=== PATIENT | male | born 1995 | race Caucasian/White ===

== ENCOUNTER 2020-11-14 10:25 | Emergency (ER) | payer OTHER, SELFPAY ==
[2020-11-14 10:39] VITALS: BP 125/76; PULSE 76; RESP 17; TEMP 36.6; O2SAT 97; BMI 29.4
--- NOTE | 2020-11-14 10:50 | ED_ITS ---
HPI - Overdose General Chief Complaint: Overdose Stated Complaint: OD Time Seen by Provider: 11/14/20 10:46 Source: patient and EMS History of Present Illness HPI Narrative: 25-year-old male with a past medical history of substance abuse BIBJovani s/p found stumbling around his apartment complex after snorting 1 bag of heroin. Patient denies any other illicit drugs/substances, EtOH, SI, HI, trauma, falls, CP/SOB, abdominal pain, nausea/vomiting. MD complaint: accidental overdose Related Data Allergies Allergy/AdvReac Type Severity Reaction Status Date / Time No Known Allergies Allergy Unverified 02/18/20 17:15 [No Known Allergies*] Review of Systems Review of Systems: Constitutional: No Fever, No Chills Eyes: No Eye Pain Cardiovascular: No Chest Pain, No SOB Respiratory: No Cough, No Dyspnea Gastrointestinal: No Nausea, No Vomiting, No Abdominal pain Musculoskeletal: No joint pain, No Myalgias, No Joint Swelling Skin: No Skin Lesions, No rash Psych: No Anxiety/Panic, No Depression, No SI/HI, No Social Issues Yes all other systems are reviewed and are negative [facility] Past Medical History Attestation statement: The following information was validated with the patient. Social History Social History Advance Directives: Yes Advance Directives Information Provided: Yes Advance Directives on File: No Physical Exam Vital Signs: Vital Signs: Last Vital Signs Temp 98 F 11/14/20 10:39 Pulse 74 11/14/20 14:30 Resp 15 11/14/20 14:30 BP 122/70 11/14/20 14:30 Pulse Ox 95 11/14/20 14:30 Body Mass Index 29.4 Const: Other: Appears under the influence, continuously falling asleep on exam, alert to voice General: lethargic Orientation/consciousness: lethargic Limitations: no limitations HENMT: Head: Yes normal to inspection and Yes atraumatic Ears: hearing grossly normal bilaterally General nose exam: Normal external nose present Face and sinus: Yes normal facial exam Eyes: General: appearance normal, both eyes and all related structures EOM: EOMs intact bilaterally Neck: Neck: Yes normal visual inspection and Yes no meningeal signs Resp: Effort & Inspection: normal respiratory effort Cardio: Rate: regular rate GI: Inspection: Yes normal to inspection Palpation (GI): Soft to palpation, nontender, no guarding and not rigid Skin: Rashes: no rashes Wounds: no wounds Neuro: General: no meningeal signs Extrem: General: Yes normal to inspection Course Course Course Narrative: -1400--patient is sleeping comfortably, easily arousable to voice -1610--patient is still very lethargic, alert to voice -1700-patient is awake and alert, ambulating in the ED without difficulty, called his brother for a ride MDM - Overdose MDM Narrative Medical decision making narrative: 25-year-old male with a past medical history of substance abuse BIBA s/p found stumbling around his apartment complex after snorting 1 bag of heroin. On exam VSS, appears under the influence, lethargic/continuously falling asleep on exam, alert to voice. Concern for substance abuse/unintentional OD. Plan: Will observe and reassess for clinical sobriety Medical Records Attestation: I reviewed the patient's medical records. Lab Data Attestation: I reviewed the patient's lab results. Discharge Plan Discharge Clinical Impression: Heroin overdose Patient Disposition: Home, Self-Care Instructions: Adult Overdose (ED) Additional Instructions: Do not do drugs or drink alcohol it can kill you Referrals: Physician,Unknown [Primary Care Provider] - 2 days
[2020-11-14 14:30] VITALS: BP 122/70; PULSE 74; RESP 15; O2SAT 95
--- NOTE | 2020-11-14 15:18 | PC.NURSE ---
Pt is more alert and oriented at this time and is awaiting disposition. VSS
--- NOTE | 2020-11-14 16:48 | MHC.RECOVSUP ---
Recovery Support note: Patient is a 25 year old Chinese speaking male who presented to [facility] ED after an accidental overdose. This development writer met with patient to discuss his substance use and recovery. Patient reports he does not recall the events that lead up to his overdose. Patient vaguely reports that he used due to a stressful situation at home. Patient reports he had 3 months of sobriety and he was staying busy by playing basketball and he reports losing significant weight through this process. Patient reports the relapse was a slip up and that he is ready to get back into recovery. Patient reports he is not interested in recovery resources and that he has friends and family that he can reach out to for support. Patient reports he is hoping to discharge soon. Discussed case with patient's RN.
== END 2020-11-14 17:28 | disposition home or self-care (01) ==
PROVIDERS: Emergency Provider Emergency Medicine Emergency Medical Services
DX: T40.1X1A Poisoning by heroin, accidental (unintentional), initial encounter (principal); F11.10 Opioid abuse, uncomplicated; Y92.9 Unspecified place or not applicable
CPT/HCPCS: 99283

== ENCOUNTER 2020-11-21 05:32 | Emergency (ER) | payer OTHER, SELFPAY ==
--- NOTE | ~2020-11-21 | XR_ITS ---
EXAMINATION: XR CHEST CLINICAL INFORMATION: Low oxygen saturation COMPARISON: None TECHNIQUE: 2 views of the chest were obtained. FINDINGS: The lungs are well expanded. There is no focal consolidation, edema, or effusion. No pneumothorax. The cardiomediastinal silhouette is within normal limits. No acute osseous abnormality. XR/XR chest 2V IMPRESSION: Clear lungs.
[2020-11-21 06:07] VITALS: BP 130/75; PULSE 90; RESP 18; TEMP 36.8; O2SAT 93; BMI 31.0
--- NOTE | 2020-11-21 06:39 | ED.EAR ---
HPI - Ear Problem General Chief complaint: Ear Problems Stated complaint: right ear pain, hearing is fine Time Seen by Provider: 11/21/20 06:33 Source: patient Mode of arrival: ambulatory Limitations: no limitations History of Present Illness HPI Narrative: 25 yo male with R ear pain since last night atraumatic, no FB, no other symptoms MD Complaint: ear pain Location: right ear Duration: constant Severity: mild Relieving factors: nothing Exacerbating factors: nothing Discharge from ear: no Treatment prior to arrival: none Related Data Previous Rx's Medication Instructions Recorded amoxicillin 500 mg PO BID 7 Days #14 tab 11/21/20 ofloxacin 10 drp OTIC (EARS) DAILY 7 Days #5 11/21/20 ml Allergies Allergy/AdvReac Type Severity Reaction Status Date / Time No Known Allergies Allergy Unverified 02/18/20 17:15 [No Known Allergies*] Review of Systems Review of Systems: Constitutional : No Fever, No Chills ENT/Mouth : No sore throat, No Rhinorrhea, pos R ear pain Eyes: No Eye Pain, No Swelling, No Redness Cardiovascular : No Chest Pain, No SOB Respiratory : No Cough, No Sputum, No Wheezing Gastrointestinal : No Nausea, No Vomiting, No Diarrhea Genitourinary : No Dysuria, No Urinary Frequency, No Hematuria, Musculoskeletal : No joint pain, No Myalgias, No Joint Swelling Skin : No Skin Lesions, No rash PMFSH Past Medical History Attestation statement: The following information was validated with the patient. Medical History No active medical problems Social History Social History Alcohol intake: unknown Patient Tobacco Use Status: Never used Tobacco Use of substances other than those prescribed or required for medical reasons: Yes Substance Use Type: Heroin Substance Use Frequency: Chronic Longstanding Advance Directives: No Advance Directives Information Provided: No Physical Exam Vital Signs: Vital Signs: Last Vital Signs Temp 98.3 F 11/21/20 06:07 Pulse 90 11/21/20 06:07 Resp 18 11/21/20 06:07 BP 130/75 11/21/20 06:07 Pulse Ox 93 11/21/20 06:07 Body Mass Index 31.0 Appearance: Alert. Oriented X3. No acute distress. Eyes: Pupils equal, round and reactive to light. ENT: Pharynx normal. R ear moderate swelling and erythema in R ear canal no FB seen TM visible with erythema and bulging no perforation noted Neck: Normal inspection. Neck supple. CVS: Normal heart rate and rhythm. Pulses normal. Respiratory: No respiratory distress. Breath sounds normal. Abdomen: Soft and non-tender. Skin: Skin warm and dry. Normal skin color. Normal skin turgor. Extremities: No lower extremity edema. No calf ttp Neuro: Oriented X 3. No motor deficit. No sensory deficit. MDM - Ear MDM Narrative Medical decision making narrative: 25 yo male otherwise healthy here with R ear pain no FB seen no perforation has mild OE and AOM, no other signs of infection, sat on my exam during interview is 97%, start on ear gtts and oral amoxicillin, stable for DC Discharge Plan Discharge Clinical Impression: Otitis externa Qualifiers: Otitis externa type: unspecified type Chronicity: acute Laterality: right Qualified Code(s): H60.501 - Unspecified acute noninfective otitis externa, right ear Otitis media Qualifiers: Otitis media type: suppurative Chronicity: acute Laterality: right Recurrence: non-recurrent Spontaneous tympanic membrane rupture: without spontaneous rupture Qualified Code(s): H66.001 - Acute suppurative otitis media without spontaneous rupture of ear drum, right ear Patient Disposition: Home, Self-Care Instructions: Otitis Externa (ED), Ear Infection (ED) Additional Instructions: return to ED for any worsening symptoms or concerns Prescriptions: New amoxicillin 500 mg tablet 500 mg PO BID 7 Days Qty: 14 RF: 0 ofloxacin 0.3 % drops 10 drp otic (ears) DAILY 7 Days Qty: 5 RF: 0 Stand Alone Forms: Work/School Release
[2020-11-21] MEDS: Amoxicillin 500 MG CAPSULE PO (06:40)
[2020-11-21 06:41] LABS: COVID-19 Test Negative (Negative)
== END 2020-11-21 07:09 | disposition home or self-care (01) ==
PROVIDERS: Emergency Provider Emergency Medicine
DX: H60.501 Unspecified acute noninfective otitis externa, right ear (principal); H66.001 Acute suppurative otitis media without spontaneous rupture of ear drum, right ear; Z20.822 Contact with and (suspected) exposure to COVID-19
CPT/HCPCS: 36415; 71046; 87635; 99283; 99284

== ENCOUNTER 2020-12-01 08:53 | Emergency (ER) | payer OTHER, SELFPAY ==
[2020-12-01 08:59] VITALS: BP 109/60; PULSE 100; RESP 18; TEMP 36.6; O2SAT 94; BMI 31.5
--- NOTE | 2020-12-01 11:03 | MHC.RECOVSUP ---
? Reason for consult:Continuity of care o Current location: [address] [place] [address] o Identified substance use concern: Heroin - Overdose - Support ? Intervention: o Community resources provided o Harm reduction discussion ? Plan: o Patient to follow up with [facility] after discharge ? Additional information:PT. presented with all options for recovery including MAR. Pt. still impaired and refusing treatment. Pt. states: I'm ready to go . Had a harm reduction discussion also. Told Nurse Howe about my assessment.
[2020-12-01 12:00] VITALS: RESP 16; O2SAT 96
[2020-12-01 14:00] VITALS: BP 113/58; PULSE 74; RESP 16; O2SAT 98
--- NOTE | 2020-12-01 17:01 | ED.OVERDOSE ---
HPI - Overdose General Chief Complaint: Overdose Stated Complaint: HEROIN OD,NARCAN GIVEN W/GOOD RESULT Time Seen by Provider: 12/01/20 11:13 Related Data Previous Rx's Medication Instructions Recorded amoxicillin 500 mg tablet 500 mg PO BID 7 Days #14 tab 11/21/20 ofloxacin 0.3 % ear drops 10 drp OTIC (EARS) DAILY 7 Days #5 11/21/20 ml ibuprofen 600 mg tablet 600 mg PO TID PRN #14 tab 12/14/20 amoxicillin 875 mg-potassium 1 tab PO Q12H 10 Days #20 tab 12/17/20 clavulanate 125 mg tablet (Augmentin) ibuprofen 600 mg tablet 600 mg PO TID PRN #60 tab 12/17/20 amoxicillin 875 mg-potassium 1 tab PO Q12H 5 Days #10 tab 12/30/20 clavulanate 125 mg tablet (Augmentin) Allergies Allergy/AdvReac Type Severity Reaction Status Date / Time No Known Allergies Allergy Verified 12/30/20 02:23 [No Known Allergies*] PMFSH Past Medical History Medical History No active medical problems Substance abuse Social History Social History Alcohol intake: unknown Patient Tobacco Use Status: Current someday Tobacco user Smoked in Last 30 Days: Yes Use of substances other than those prescribed or required for medical reasons: No Substance Use Type: Marijuana Advance Directives: No Physical Exam Vital Signs: Vital Signs: Last Vital Signs Temp 98 F 12/01/20 08:59 Pulse 74 12/01/20 14:00 Resp 16 12/01/20 14:00 BP 113/58 L 12/01/20 14:00 Pulse Ox 98 12/01/20 14:00 Body Mass Index 31.5 Discharge Plan Discharge Clinical Impression: Opiate overdose Patient Disposition: Home, Self-Care Instructions: Narcotic Safety (ED), Narcotic Use Disorder (ED) Additional Instructions: You overdosed on intranasal narcotics / heroin today. You need to get into a detox program to help with your opiate use disorder. I offered to have one of our care team specialist talk to you about getting into detox program however you have elected to pursue detox on your own, make sure that you follow through with this plan. If you continue to use opiates there is a high chance that you will from an opiate overdose. if you continue to use heroin then you should make sure that there is a sober person that can be with you and administer intranasal Narcan in the event that you stop breathing. Follow-up with your doctor in 2 days. Please return to the emergency department if your symptoms get worse or if you develop any symptoms that are concerning to you. Prescriptions: No Action amoxicillin 500 mg tablet 500 mg PO BID 7 Days Qty: 14 RF: 0 ofloxacin 0.3 % drops 10 drp otic (ears) DAILY 7 Days Qty: 5 RF: 0 amoxicillin-pot clavulanate [Augmentin] 875-125 mg tablet 1 tab PO Q12H 5 Days Qty: 10 RF: 0 ibuprofen 600 mg tablet 600 mg PO TID PRN (Reason: pain) Qty: 14 RF: 0 amoxicillin-pot clavulanate [Augmentin] 875-125 mg tablet 1 tab PO Q12H 10 Days Qty: 20 RF: 0 ibuprofen 600 mg tablet 600 mg PO TID PRN (Reason: pain) Qty: 60 RF: 0 Interventions: ED Discharge Assessment Last Done: 12/01/20 17:31 Discharge Date/Time: 12/01/20 17:22
== END 2020-12-01 17:22 | disposition home or self-care (01) ==
PROVIDERS: Emergency Provider Emergency Medicine Emergency Medical Services
DX: T40.1X1A Poisoning by heroin, accidental (unintentional), initial encounter (principal); Y92.9 Unspecified place or not applicable; F19.10 Other psychoactive substance abuse, uncomplicated
CPT/HCPCS: 99284; 99285

== ENCOUNTER 2020-12-01 19:17 | Emergency (ER) | payer OTHER, SELFPAY ==
[2020-12-01 19:17] VITALS: BP 128/69; PULSE 86; RESP 16; O2SAT 99; BMI 31.0
[2020-12-01 19:21] VITALS: BP 128/69; PULSE 86; RESP 16; TEMP 36.4; O2SAT 99
--- NOTE | 2020-12-01 20:38 | MHC.RECOVSUP ---
? Reason for consult Recovery Support o Current location: [facility] o Identified substance use concern: Heroin - Overdose - Seeking ATS (detox) - Support ? Intervention: o ATS bed search [id number] o Community resources provided o Harm reduction discussion ? Plan o Follow up tomorrow o Patient to follow up with [facility] after discharge ? Additional information: Patient Has two possible bed for the Morning.. At [facility] which is his first choice Paper work Faxed by Patient Nurse.... the other place patient has a bed pending is at [facility] they ask that for a call in the Morning...
--- NOTE | 2020-12-01 20:43 | PC.NURSE ---
Pt changed into hospital attire upon arrival, belongings placed in decon. Pt is calm, cooperative and seeking detox. Bed available tomorrow AM in [facility]- pt info sent via fax.
[2020-12-01 20:55] VITALS: BP 115/61; PULSE 73; RESP 14; O2SAT 96
--- NOTE | 2020-12-01 22:56 | ED.OVERDOSE ---
HPI - Overdose General Chief Complaint: Overdose Stated Complaint: OD Time Seen by Provider: 12/01/20 22:56 Source: patient and EMS Mode of arrival: EMS Limitations: no limitations History of Present Illness HPI Narrative: patient's history of heroin abuse came to the ER 2nd time with heroin overdose within 2 weeks, planning to go for inpatient detox tomorrow just prior to arrival patient was found outside the laboratory by bystander not breathing started CPR 4 mg of nasal Narcan was given by EMS with positive effect patient admitted using 3 bags of heroin prior to arrival at this time patient is alert oriented x3 saturating 99% at room air Related Data Previous Rx's Medication Instructions Recorded amoxicillin 500 mg PO BID 7 Days #14 tab 11/21/20 ofloxacin 10 drp OTIC (EARS) DAILY 7 Days #5 11/21/20 ml Allergies Allergy/AdvReac Type Severity Reaction Status Date / Time No Known Allergies Allergy Unverified 02/18/20 17:15 [No Known Allergies*] Review of Systems Review of Systems: Yes all other systems are reviewed and are negative PMFSH Past Medical History Medical History No active medical problems Social History Social History Alcohol intake: unknown Patient Tobacco Use Status: Never used Tobacco Use of substances other than those prescribed or required for medical reasons: Yes Substance Use Type: Heroin Advance Directives: No Advance Directives Information Provided: Yes Physical Exam Vital Signs: Vital Signs: Last Vital Signs Temp 97.5 F 12/01/20 19:21 Pulse 73 12/01/20 20:55 Resp 14 12/01/20 20:55 BP 115/61 12/01/20 20:55 Pulse Ox 96 12/01/20 20:55 Body Mass Index 31.0 Appearance: Alert. Oriented X3. No acute distress. sleepy but arousable Eyes: PERRLA, No Nystagmus ENT: Pharynx normal. Oral Mucosa moist Neck: Normal inspection. Neck supple. CVS: Normal heart rate and rhythm. Pulses normal. Respiratory: No respiratory distress. Equal air entry bilateral, no wheezing/rales/rhonchi Abdomen: Soft and nontender. Bowel sounds are present, no mass palpable, no CVA tenderness Skin: Skin warm and dry. Normal skin color. Normal skin turgor. Extremities: No lower extremity edema. No calf tenderness Neuro: Oriented X 3. No motor deficit. MDM - Overdose MDM Narrative Medical decision making narrative: patient with hx of heroin abuse plan to go to detox in the morning will keep him in the ER as he came within 2 weeks of overdose till tomorrow morning for detox placement Discharge Plan Discharge Clinical Impression: Drug overdose Qualifiers: Encounter type: initial encounter Injury intent: accidental or unintentional Qualified Code(s): T50.901A - Poisoning by unspecified drugs, medicaments and biological substances, accidental (unintentional), initial encounter Patient Disposition: Home, Self-Care Instructions: Opioid Use Disorder (ED) Additional Instructions: follow-up with detox medically clear for detox admission Prescriptions: No Action amoxicillin 500 mg tablet 500 mg PO BID 7 Days Qty: 14 RF: 0 ofloxacin 0.3 % drops 10 drp otic (ears) DAILY 7 Days Qty: 5 RF: 0
[2020-12-02] VITALS: RESP 16
[2020-12-02 07:56] VITALS: PULSE 80; O2SAT 95
[2020-12-02 09:01] VITALS: BP 118/74
--- NOTE | 2020-12-02 09:01 | PC.NURSE ---
Robby Scruggs admitting [facility].
--- NOTE | 2020-12-02 09:06 | MHC.RECOVSUP ---
Recovery Support note: This com writer met with patient to follow up on ATS referral from yesterday. [facility] reports patient is able to return however he must agree to remain in treatment after detox in their step down program as patient recently left their detox. Patient is agreeable to this plan. Patient completed phone intake and Tejas KENNEY completed nurse to nurse. This com writer will arrange transportation for patient to [facility].
== END 2020-12-02 10:16 | disposition home or self-care (01) ==
PROVIDERS: Emergency Provider Emergency Medicine Emergency Medical Services
DX: T40.1X1A Poisoning by heroin, accidental (unintentional), initial encounter (principal); F11.10 Opioid abuse, uncomplicated; Y92.89 Other specified places as the place of occurrence of the external cause
CPT/HCPCS: 99285

== ENCOUNTER 2020-12-13 22:36 | Emergency (ER) | payer OTHER, SELFPAY ==
--- NOTE | ~2020-12-13 | XR_ITS ---
EXAMINATION: XR RIBS, LEFT CLINICAL INFORMATION: Lower rib pain COMPARISON: 11/21/2020 TECHNIQUE: 3 views of the left ribs were obtained. FINDINGS: No rib fracture identified. Lungs are symmetrically expanded and clear. No evidence of pneumothorax, pleural effusion, or pulmonary edema. The cardiomediastinal contour is unremarkable. XR/XR ribs LT min 3V w CXR1V IMPRESSION: No rib fracture identified.
[2020-12-13 22:37] VITALS: BP 133/78; PULSE 83; RESP 18; TEMP 36.9; O2SAT 97; BMI 32.5
--- NOTE | 2020-12-14 00:55 | ECG_ITS ---
Test Reason : CP Blood Pressure : / mmHG Vent. Rate : 070 BPM Atrial Rate : 070 BPM P-R Int : 092 ms QRS Dur : 082 ms QT Int : 384 ms P-R-T Axes : -28 028 044 degrees QTc Int : 414 ms Sinus rhythm with short GA Otherwise normal ECG When compared with ECG of 04-JUL-2004 13:54, Heart rate has decreased by 34 beats Referred By: Liss Dhillon Electronically Signed By:Brian Eckert
--- NOTE | 2020-12-14 00:56 | ED_ITS ---
HPI - Chest Pain General Chief Complaint: Chest Pain Stated Complaint: abd pain Time Seen by Provider: 12/14/20 00:50 Source: patient Mode of arrival: ambulatory Limitations: no limitations History of Present Illness HPI narrative: Patient comes emergency room complaining left-sided rib pain. Patient states that it started hurting approximately 6 hours ago. Patient states every time he moves his ribs hurt, denies any trauma, no falls, denies coughing or any recent URIs. Otherwise patient feeling well. Of note, patient was seen here on December 01, after an overdose. Patient received 1 round of CPR by a bystander and 4 of Narcan. Related Data Previous Rx's Medication Instructions Recorded amoxicillin 500 mg PO BID 7 Days #14 tab 11/21/20 ofloxacin 10 drp OTIC (EARS) DAILY 7 Days #5 11/21/20 ml ibuprofen 600 mg PO TID PRN #14 tab 12/14/20 Allergies Allergy/AdvReac Type Severity Reaction Status Date / Time No Known Allergies Allergy Unverified 02/18/20 17:15 [No Known Allergies*] Review of Systems Review of Systems: Constitutional : No Weight loss, No Fever, No Chills, No Night Sweats, No Fatigue, No Malaise ENT/Mouth : No Hearing loss, No Ear Pain, No Nasal Congestion, No Sinus Pain, No Hoarseness, No sore throat, No Rhinorrhea, No Swallowing Difficulty Eyes: No Eye Pain, No Swelling, No Redness, No Foreign Body, No Discharge, No Vision Changes Cardiovascular : No Chest Pain, No SOB, No Dyspnea on Exertion, No Orthopnea, No Edema, No Palpitations Respiratory : No Cough, No Sputum, No Wheezing, No Smoke Exposure, No Dyspnea Gastrointestinal : No Nausea, No Vomiting, No Diarrhea, No Constipation, No abdominal Pain, No Hematochezia, No Melena Genitourinary : no irregular bleeding, No Dysuria, No Urinary Frequency, No Hematuria, No Urinary Incontinence, No Urgency, No Flank Pain, No Urinary Flow Changes, No Hesitancy Musculoskeletal : Complaining of left-sided rib pain, No joint pain, No Myalgias, No Joint Swelling Skin : No Skin Lesions, No rash Neuro : No Weakness, No Numbness, No Paresthesias, No Loss of Consciousness, No Dizziness, No Headache Psych : No Anxiety/Panic, No Depression, No SI/HI/AH/VH, No Social Issues, Heme/Lymph: No Bruising, No Bleeding,No Lymphadenopathy Endocrine : No Polyuria, No Polydipsia, No Temperature Intolerance [facility] Past Medical History Medical History (Updated 12/14/20 @ 03:16 by Liss Dhillon MD) No active medical problems Substance abuse Social History Social History Alcohol intake: never Patient Tobacco Use Status: Current someday Tobacco user Smoked in Last 30 Days: Yes Use of substances other than those prescribed or required for medical reasons: Yes Substance Use Type: Marijuana Last Used Substance: Just Prior to Admission Any prior treatment program specific to substance use: Yes Advance Directives: No Physical Exam Vital Signs: Vital Signs: Last Vital Signs Temp 98.1 F 12/14/20 02:34 Pulse 68 12/14/20 02:34 Resp 16 12/14/20 02:34 BP 102/57 L 12/14/20 02:34 Pulse Ox 96 12/14/20 02:34 Body Mass Index 32.5 Appearance: Alert. Oriented X3. No acute distress. Eyes: Pupils equal, round and reactive to light. ENT: Pharynx normal. Neck: Normal inspection. Neck supple. No lymph nodes noted. No crepitus CVS: Normal heart rate and rhythm. Pulses normal. Normal S1 and S2 Respiratory: No respiratory distress. Breath sounds normal. No Wheezing. No rales Abdomen: Soft and nontender. No rigidity. No distention. good BS x4 Skin: Skin warm and dry. Normal skin color. Normal skin turgor. MSK: Pain to palpation over the lower ribs on the left side, frontal and flank aspect Extremities: No lower extremity edema. No lower extremity edema. No Lace rations. No Rash Neuro: Oriented X 3. No motor deficit. No sensory deficit. Moving all extermities. No slurred speech. Course Course Course Narrative: I discussed the labs and imaging with the patient, no acute findings. Patient's pain in the ribs likely secondary to costochondritis from receiving CPR. I offered to the patient a Toradol IM injection, patient declined, patient states that he prefers lidocaine patches MDM - Chest Pain Lab Data Labs: Lab Results 12/14/20 12/14/20 Range/Units 01:12 01:12 Urine Color YELLOW Urine Appearance CLEAR Urine pH 5.5 (5.0-8.0) Ur Specific [place] >= 1.030 H (1.005-1.025) Urine Protein NEG (NEG-TRACE) MG/DL Urine Glucose (UA) NEG (NEG) MG/DL Urine Ketones 15 (NEG) MG/DL Urine Blood NEG (NEG) Urine Nitrite NEG (NEG) Ur Leukocyte Esterase NEG (NEG) Urine Opiates Screen Not Detected (Not Detect) Ur Barbiturates Screen POSITIVE H (Not Detect) Ur Phencyclidine Scrn Not Detected (Not Detect) Ur Amphetamines Screen Not Detected (Not Detect) U Benzodiazepines Scrn Not Detected (Not Detect) Urine Cocaine Screen POSITIVE H (Not Detect) U Marijuana (THC) Screen POSITIVE H (Not Detect) Imaging Data Chest x-ray: Radiologist's impression: No rib fracture identified. Lungs are symmetrically expanded and clear. No evidence of pneumothorax, pleural effusion, or pulmonary edema. The cardiomediastinal contour is unremarkable. XR/XR ribs LT min 3V w CXR1V IMPRESSION: No rib fracture identified. ECG Data ECG #1: Attestation: I personally reviewed and interpreted this ECG as follows: (Sinus rhythm, heart rate 70, no ST segment depression or elevation, no T-wave inversion) Discharge Plan Discharge Clinical Impression: Costochondritis Patient Disposition: Home, Self-Care Instructions: Costochondritis (ED) Additional Instructions: Please follow-up with your primary care physician tomorrow. If you have any worsening or new symptoms, please return to the emergency room or call 911 Prescriptions: New ibuprofen 600 mg tablet 600 mg PO TID PRN (Reason: pain) Qty: 14 RF: 0 No Action amoxicillin 500 mg tablet 500 mg PO BID 7 Days Qty: 14 RF: 0 ofloxacin 0.3 % drops 10 drp otic (ears) DAILY 7 Days Qty: 5 RF: 0
[2020-12-14 01:09] VITALS: BP 115/62; PULSE 70; PULSE 76; RESP 18; O2SAT 98
[2020-12-14 01:24] LABS: Glucose Urine UA NEG (NEG); Leukocyte Esterase Urine NEG (NEG); Nitrite Urine NEG (NEG); PH 5.5 (5.0-8.0); Specific Gravity - Urine >= 1.030 (1.005-1.025); Urine Blood NEG (NEG); Urine Ketones 15 MG/DL (NEG); Urine Protein NEG (NEG-TRACE)
[2020-12-14 01:25] LABS: Appearance Urine CLEAR; Color Urine YELLOW
[2020-12-14 01:36] LABS: Amphetamine Screen Urine Not Detected (Not Detect); Barbiturates, Urine POSITIVE (Not Detect); Benzodiazepines Screen Urine Not Detected (Not Detect); Cannabinoid Screen Urine POSITIVE (Not Detect); Cocaine Screen Urine POSITIVE (Not Detect); Opiate Screen Urine Not Detected (Not Detect); Phencyclidine Screen Urine Not Detected (Not Detect)
[2020-12-14 02:34] VITALS: BP 102/57; PULSE 68; RESP 16; TEMP 36.7; O2SAT 96
== END 2020-12-14 03:39 | disposition home or self-care (01) ==
PROVIDERS: Emergency Provider Emergency Medicine
DX: M94.0 Chondrocostal junction syndrome [Tietze] (principal); R07.81 Pleurodynia; F17.200 Nicotine dependence, unspecified, uncomplicated; Z71.6 Tobacco abuse counseling; F12.90 Cannabis use, unspecified, uncomplicated; Z79.899 Other long term (current) drug therapy
CPT/HCPCS: 71101; 80307; 81003; 93005; 99284; 99285

== ENCOUNTER 2020-12-14 21:20 | Emergency (ER) | payer OTHER, SELFPAY ==
[2020-12-14 21:24] VITALS: BP 119/72; PULSE 89; RESP 18; TEMP 36.9; O2SAT 95; BMI 32.5
--- NOTE | 2020-12-14 22:09 | ED.GENADULT ---
HPI - General Adult General Chief complaint: General Medical Stated complaint: PT was here yesterday, states pain is worse Time Seen by Provider: 12/14/20 21:58 Source: patient Mode of arrival: ambulatory Limitations: no limitations History of Present Illness HPI narrative: 25-year-old male who presents emergency department for evaluation of left-sided chest wall pain. The patient's pain started yesterday and came on suddenly. He describes the pain as a sharp, intermittent pain which is worse with breathing and with movement. He denied fever, chills, shortness of breath, cough, nausea, vomiting. The patient was seen here yesterday and was diagnosed with costochondritis. He was advised to take ibuprofen and he states that he took some ibuprofen with only minimal relief his pain. He states that he was off a shot of pain medication but refused yesterday but would consider getting this pain medication again today. Related Data Previous Rx's Medication Instructions Recorded amoxicillin 500 mg PO BID 7 Days #14 tab 11/21/20 ofloxacin 10 drp OTIC (EARS) DAILY 7 Days #5 11/21/20 ml ibuprofen 600 mg PO TID PRN #14 tab 12/14/20 Allergies Allergy/AdvReac Type Severity Reaction Status Date / Time No Known Allergies Allergy Unverified 02/18/20 17:15 [No Known Allergies*] Review of Systems Review of Systems: Yes all other systems are reviewed and are negative [facility] Past Medical History [facility] Narrative: Past medical history: Heroin use disorder. Past surgical history: None. Social history: The patient denies tobacco use, denies alcohol use. The patient does have a history of heroin use disorder but he states that he recently got out of detox and is no longer using. Medical History (Updated 12/14/20 @ 22:15 by Tray Pinto MD) No active medical problems Substance abuse Social History Social History Alcohol intake: never Patient Tobacco Use Status: Current someday Tobacco user Substance Use Type: Marijuana Advance Directives: No Advance Directives Information Provided: No Physical Exam Vital Signs: Vital Signs: Last Vital Signs Temp 98.5 F 12/14/20 21:24 Pulse 89 12/14/20 21:24 Resp 18 12/14/20 21:24 BP 119/72 12/14/20 21:24 Pulse Ox 95 12/14/20 21:24 Body Mass Index 32.5 Const: General: cooperative and healthy appearing Orientation/consciousness: oriented to person and oriented to place Limitations: no limitations HENMT: Head: Yes normal to inspection, Yes normocephalic and Yes atraumatic Ears: external ears normal General nose exam: Normal external nose present Face and sinus: Yes normal facial exam Mouth: Normal oral and palatal mucosa present Throat: Yes posterior oropharynx normal Eyes: Periorbital: periorbital findings normal Eyelids: Yes eyelids normal Conjunctivae: conjunctivae normal Sclerae: sclerae normal Corneas: corneas normal Pupils: Equal, round and reactive pupils present Direct Ophthalmoscopy: normal light reflex Neck: Neck: Yes full ROM, Yes no lymphadenopathy, Yes no meningeal signs, Yes trachea midline and Yes supple Chest: Chest palpation & inspection: normal inspection of the chest and tenderness (Tender left lateral chest wall, no ecchymosis, no lesions) Resp: Effort & Inspection: normal respiratory effort and able to speak in complete sentences Auscultation: clear to auscultation bilaterally Cardio: Rate: regular rate Rhythm: regular rhythm Heart sounds: S1 normal heart sound present, S2 normal heart sound present and no murmurs GI: Inspection: Yes normal to inspection Palpation (GI): Soft to palpation, nontender, no guarding, not rigid and No hepatosplenomegaly present : General: Yes no CVA tenderness Back/Spine/Pelvis: Back: no CVA tenderness Cervical Spine: normal cervical lordosis Thoracic/Lumbar Spine: thoracic and lumbar spine normal to inspection Skin: Lesions: no lesions Rashes: no rashes Wounds: no wounds Neuro: General: oriented to person, oriented to place and no meningeal signs Cranial nerves: Yes CN's II-XII intact bilaterally and Yes Equal, round and reactive pupils present Cognition (Neuro): normal cognition Motor exam (neuro): 5/5 motor strength present throughout Extrem: General: Yes normal to inspection and Yes full ROM Psych: Appearance: well kempt Mental Status: mental status grossly normal Speech and movement: Normal speech and movement present Affect: normal affect Attitude: cooperative Thought process: Normal thought process present Thought content: Normal thought content present Course Course Course Narrative: 25-year-old male who presents emergency department for evaluation of left-sided chest wall pain which came on suddenly yesterday. Physical examination did reveal left-sided chest wall tenderness. Patient's presentation is consistent with costochondritis versus musculoskeletal pain. Patient was ordered to get Toradol 60 mg IM. He was advised take Tylenol and ibuprofen for his pain. The patient will be discharged home. Insert course follow-up return. Discharge Plan Discharge Clinical Impression: Acute chest wall pain Patient Disposition: Home, Self-Care Instructions: Costochondritis (ED) Additional Instructions: You received Toradol 60 mg IM. This is a strong anti-inflammatory pain medication. Take ibuprofen 200 mg pills, 3 pills every 6 hours as needed for pain. Take Tylenol (acetaminophen) 500 mg pills, 2 pills every 4 to 6 hours as needed for pain. Follow-up with your doctor in 2 days. Please return to the emergency department if your symptoms get worse or if you develop any symptoms that are concerning to you. Prescriptions: No Action amoxicillin 500 mg tablet 500 mg PO BID 7 Days Qty: 14 RF: 0 ofloxacin 0.3 % drops 10 drp otic (ears) DAILY 7 Days Qty: 5 RF: 0 ibuprofen 600 mg tablet 600 mg PO TID PRN (Reason: pain) Qty: 14 RF: 0
[2020-12-14] MEDS: Ketorolac Tromethamine 60 MG/2 ML VIAL IM (22:27)
== END 2020-12-14 22:34 | disposition home or self-care (01) ==
PROVIDERS: Emergency Provider Emergency Medicine Emergency Medical Services
DX: R07.89 Other chest pain (principal); F12.90 Cannabis use, unspecified, uncomplicated; R11.2 Nausea with vomiting, unspecified; Z79.899 Other long term (current) drug therapy
CPT/HCPCS: 96372; 99284; J1885

== ENCOUNTER 2020-12-16 23:09 | Emergency (ER) | payer OTHER, SELFPAY ==
[2020-12-16 23:25] VITALS: BP 115/62; PULSE 87; RESP 16; TEMP 36.7; O2SAT 97; BMI 32.5
--- NOTE | 2020-12-17 01:31 | ED.EAR ---
HPI - Ear Problem General Chief complaint: Ear Problems Stated complaint: loss hearing in right ear Source: patient Mode of arrival: ambulatory Limitations: no limitations History of Present Illness HPI Narrative: 25-year-old male presents with recurrent ear infections. States he was treated a couple weeks ago however he did not complete the entire course of antibiotics. He does have some right ear pain with hearing loss. Does not report any discharge, fevers, chills, difficulty opening his mouth, difficulty chewing, trouble swallowing, or any other concerning symptoms. MD Complaint: ear pain Location: right ear Duration: constant Severity: moderate Relieving factors: nothing Context: recent illness Discharge from ear: no Related Data Previous Rx's Medication Instructions Recorded amoxicillin 500 mg PO BID 7 Days #14 tab 11/21/20 ofloxacin 10 drp OTIC (EARS) DAILY 7 Days #5 11/21/20 ml ibuprofen 600 mg PO TID PRN #14 tab 12/14/20 amoxicillin-pot clavulanate 1 tab PO Q12H 10 Days #20 tab 12/17/20 [Augmentin] ibuprofen 600 mg PO TID PRN #60 tab 12/17/20 Allergies Allergy/AdvReac Type Severity Reaction Status Date / Time No Known Allergies Allergy Unverified 02/18/20 17:15 [No Known Allergies*] Review of Systems Review of Systems: Constitutional: No Fever, No Chills ENT/Mouth: Positive right Ear Pain, No Hoarseness, No sore throat Eyes: No Eye Pain, No Swelling, No Redness, No Foreign Body Cardiovascular: No Chest Pain, No SOB Respiratory: No Cough, No Dyspnea Gastrointestinal: No Nausea, No Vomiting, No Diarrhea, No abdominal Pain Genitourinary: No Dysuria, No Hematuria Musculoskeletal: No joint pain, No Myalgias, No Joint Swelling Skin: No Skin lacerations, No rash Neuro: No Weakness, No Numbness, No Paresthesias, No Loss of Consciousness, No Dizziness, No Headache Psych: No Anxiety/Panic, No Depression Heme/Lymph: no easy bruising, no Lymphadenopathy Endocrine: No Polyuria, No Polydipsia Yes all other systems are reviewed and are negative [facility] Past Medical History Attestation statement: The following information was validated with the patient. Source: old records reviewed Medical History No active medical problems Substance abuse Social History Social History Alcohol intake: never Patient Tobacco Use Status: Current someday Tobacco user Substance Use Type: Marijuana Advance Directives: No Advance Directives Information Provided: No Physical Exam Vital Signs: Vital Signs: Last Vital Signs Temp 98.1 F 12/16/20 23:25 Pulse 87 12/16/20 23:25 Resp 16 12/16/20 23:25 BP 115/62 12/16/20 23:25 Pulse Ox 97 12/16/20 23:25 Body Mass Index 32.5 Appearance: Alert. Oriented X3. No acute distress. Head: Normal external exam. Normocephalic. Atraumatic. No Hooper signs noted. No raccoon eyes noted Eyes: PERRLA. EOMI. Conjunctiva and sclera normal. Eyelids normal. ENT: TM's bilaterally occluded with cerumen impaction. Pharynx normal. Uvula midline. Moist mucous membranes. No mastoid tenderness noted. Neck: Normal inspection. Neck supple. No nuchal rigidity. No adenopathy. No meningeal signs. No neck mass noted. CVS: Normal heart rate and rhythm. Respiratory: No respiratory distress. Painless inspiration. Abdomen: Soft and nontender. Back: No CVA tenderness. Full range of motion noted. Skin: Skin warm and dry. Normal skin color. Normal skin turgor. No rashes/lesions/lacerations noted. Extremities: No lower extremity edema. Extremities exhibit normal range of motion. Extremities nontender. Neuro: cranial nerves 2-12 intact, no focal neural deficits, strength 5/5 to all extremities, No motor deficit. No sensory deficit. Course Course Course Narrative: 25-year-old male presents with right-sided ear pain and decreased hearing. He does have bilateral cerumen impactions. Reports that he did not complete entire course of antibiotics for recurrent ear infection approximately 3 weeks ago. Will give patient Augmentin and have patient follow-up ENT. Patient verbalizes understanding of and agrees with plan of care discharge home. MDM - Ear Differential Diagnosis Differential diagnosis: Likely otitis externa, otitis media, ruptured TM and cerumen impaction Medical Records Attestation: I reviewed the patient's medical records. Discharge Plan Discharge Clinical Impression: Otitis media Qualifiers: Otitis media type: suppurative Chronicity: chronic Laterality: right Suppurative otitis media location: unspecified location Qualified Code(s): H66.3X1 - Other chronic suppurative otitis media, right ear Cerumen impaction Qualifiers: Laterality: bilateral Qualified Code(s): H61.23 - Impacted cerumen, bilateral Patient Disposition: Home, Self-Care Instructions: Ear Infection (ED) Additional Instructions: You were evaluated for right ear pain. You have bilateral cerumen impactions. He also did not complete the entire course of antibiotics for your last ear infection. Please take Augmentin twice a day for the next 10 days. You must follow-up with ENT for further evaluation. I provided you phone number for Dr. Dahl. Please call and request an appointment. Thank you for choosing this emergency department for evaluation. Please follow-up with primary care physician as needed. Return to the emergency department for any new, concerning, or worsening symptoms. Prescriptions: New amoxicillin-pot clavulanate [Augmentin] 875-125 mg tablet 1 tab PO Q12H 10 Days Qty: 20 RF: 0 ibuprofen 600 mg tablet 600 mg PO TID PRN (Reason: pain) Qty: 60 RF: 0 No Action amoxicillin 500 mg tablet 500 mg PO BID 7 Days Qty: 14 RF: 0 ofloxacin 0.3 % drops 10 drp otic (ears) DAILY 7 Days Qty: 5 RF: 0 ibuprofen 600 mg tablet 600 mg PO TID PRN (Reason: pain) Qty: 14 RF: 0 Referrals: Aj Dahl [Physician] - 2 days (Bilateral cerumen impaction with recurrent ear infection)
[2020-12-17 01:56] VITALS: BP 132/78; PULSE 84; RESP 17; O2SAT 97
[2020-12-17] MEDS: Ibuprofen 600 MG TABLET PO (02:03)
[2020-12-17] MEDS: Amoxicillin/Potassium Clav 875 MG TABLET PO (02:03)
== END 2020-12-17 02:10 | disposition home or self-care (01) ==
PROVIDERS: Emergency Provider Student in an Organized Health Care Education/Training Program
DX: H66.3X1 Other chronic suppurative otitis media, right ear (principal); H61.23 Impacted cerumen, bilateral
CPT/HCPCS: 99283

== ENCOUNTER 2020-12-24 21:54 | Emergency (ER) | payer OTHER, SELFPAY ==
[2020-12-24 22:00] VITALS: BP 120/70; BP 127/66; PULSE 108; PULSE 97; RESP 16; TEMP 37.1; O2SAT 94; O2SAT 98; BMI 32.6
--- NOTE | 2020-12-24 22:04 | ED.OVERDOSE ---
HPI - Overdose General Chief Complaint: ETOH/Substance Use Stated Complaint: od Time Seen by Provider: 12/24/20 21:57 Source: patient and EMS Mode of arrival: EMS Limitations: no limitations History of Present Illness HPI Narrative: Patient is brought to the emergency room after being found unconscious in a park by a bystander. 911 was called, patient was given 2 mg of intranasal Narcan. Patient woke up, vomited, has been awake since then. Patient states that he used heroin prior to arrival. Patient denies using other drugs. At this time, patient states that he feels sleepy but otherwise well. Patient states the overdose was an accident, denies SI or HI Related Data Previous Rx's Medication Instructions Recorded amoxicillin 500 mg PO BID 7 Days #14 tab 11/21/20 ofloxacin 10 drp OTIC (EARS) DAILY 7 Days #5 11/21/20 ml ibuprofen 600 mg PO TID PRN #14 tab 12/14/20 amoxicillin-pot clavulanate 1 tab PO Q12H 10 Days #20 tab 12/17/20 [Augmentin] ibuprofen 600 mg PO TID PRN #60 tab 12/17/20 Allergies Allergy/AdvReac Type Severity Reaction Status Date / Time No Known Allergies Allergy Unverified 02/18/20 17:15 [No Known Allergies*] Review of Systems Review of Systems: Constitutional : No Weight loss, No Fever, No Chills, No Night Sweats, No Fatigue, No Malaise ENT/Mouth : No Hearing loss, No Ear Pain, No Nasal Congestion, No Sinus Pain, No Hoarseness, No sore throat, No Rhinorrhea, No Swallowing Difficulty Eyes: No Eye Pain, No Swelling, No Redness, No Foreign Body, No Discharge, No Vision Changes Cardiovascular : No Chest Pain, No SOB, No Dyspnea on Exertion, No Orthopnea, No Edema, No Palpitations Respiratory : No Cough, No Sputum, No Wheezing, No Smoke Exposure, No Dyspnea Gastrointestinal : No Nausea, No Vomiting, No Diarrhea, No Constipation, No abdominal Pain, No Hematochezia, No Melena Genitourinary : no irregular bleeding, No Dysuria, No Urinary Frequency, No Hematuria, No Urinary Incontinence, No Urgency, No Flank Pain, No Urinary Flow Changes, No Hesitancy Musculoskeletal : No joint pain, No Myalgias, No Joint Swelling Skin : No Skin Lesions, No rash Neuro : No Weakness, No Numbness, No Paresthesias, No Loss of Consciousness, No Dizziness, No Headache Psych : No Anxiety/Panic, No Depression, No SI/HI/AH/VH, recurrent overdose Heme/Lymph: No Bruising, No Bleeding,No Lymphadenopathy Endocrine : No Polyuria, No Polydipsia, No Temperature Intolerance PMF Past Medical History Medical History No active medical problems Substance abuse Social History Social History Alcohol intake: never Patient Tobacco Use Status: Current someday Tobacco user Substance Use Type: Marijuana Advance Directives: No Advance Directives Information Provided: Yes Physical Exam Vital Signs: Vital Signs: Last Vital Signs Temp 98.7 F 12/24/20 22:00 Pulse 88 12/25/20 00:00 Resp 12 12/25/20 00:00 BP 102/58 L 12/25/20 00:00 Pulse Ox 96 12/25/20 00:00 Body Mass Index 32.6 Appearance: Alert. Oriented X3. No acute distress. Somnolent but easily arousable Eyes: Pupils equal, round and reactive to light. ENT: Pharynx normal. Neck: Normal inspection. Neck supple. No lymph nodes noted. No crepitus CVS: Normal heart rate and rhythm. Pulses normal. Normal S1 and S2 Respiratory: No respiratory distress. Breath sounds normal. No Wheezing. No rales Abdomen: Soft and nontender. No rigidity. No distention. good BS x4 Skin: Skin warm and dry. Normal skin color. Normal skin turgor. Extremities: No lower extremity edema. No lower extremity edema. No Lacerations. No Rash Neuro: Oriented X 3. Cranial nerves 2-12 grossly intact. No motor deficit. No sensory deficit. Moving all extermities. No slurred speech. Course Course Course Narrative: Physician ulceration started at 01:00, patient remained stable, oxygen saturation 98% on room air, patient is still somnolent, easily arousable, not ready for discharge Discharge Plan Discharge Clinical Impression: Accidental overdose Prescriptions: No Action amoxicillin 500 mg tablet 500 mg PO BID 7 Days Qty: 14 RF: 0 ofloxacin 0.3 % drops 10 drp otic (ears) DAILY 7 Days Qty: 5 RF: 0 ibuprofen 600 mg tablet 600 mg PO TID PRN (Reason: pain) Qty: 14 RF: 0 amoxicillin-pot clavulanate [Augmentin] 875-125 mg tablet 1 tab PO Q12H 10 Days Qty: 20 RF: 0 ibuprofen 600 mg tablet 600 mg PO TID PRN (Reason: pain) Qty: 60 RF: 0
[2020-12-25] VITALS: BP 102/58; PULSE 88; RESP 12; O2SAT 96
[2020-12-25 02:00] VITALS: BP 90/63; PULSE 92; RESP 12; O2SAT 97
[2020-12-25 04:00] VITALS: BP 107/62; PULSE 86; RESP 14
[2020-12-25 06:00] VITALS: BP 110/70; PULSE 80; RESP 14; O2SAT 94
== END 2020-12-25 07:36 | disposition home or self-care (01) ==
PROVIDERS: Emergency Provider Emergency Medicine
DX: T40.1X1A Poisoning by heroin, accidental (unintentional), initial encounter (principal); R40.0 Somnolence; Y92.410 Unspecified street and highway as the place of occurrence of the external cause; F11.10 Opioid abuse, uncomplicated; F12.90 Cannabis use, unspecified, uncomplicated; F17.210 Nicotine dependence, cigarettes, uncomplicated
CPT/HCPCS: 99284

== ENCOUNTER 2020-12-30 02:10 | Emergency (ER) | payer OTHER, SELFPAY ==
[2020-12-30 02:20] VITALS: BP 123/81; PULSE 74; RESP 16; TEMP 36.3; O2SAT 96; BMI 32.5
--- NOTE | 2020-12-30 03:02 | ED.DENTAL ---
HPI - Dental/Oral General Chief complaint: Dental/Oral Stated complaint: toothache Time Seen by Provider: 12/30/20 03:01 Source: patient Mode of arrival: ambulatory History of Present Illness HPI Narrative: Or 25-year-old male with upper left tooth pain denies any purulence drainage or fevers, chills and denies difficulty swallowing or breathing. Related Data Previous Rx's Medication Instructions Recorded amoxicillin 500 mg tablet 500 mg PO BID 7 Days #14 tab 11/21/20 ofloxacin 0.3 % ear drops 10 drp OTIC (EARS) DAILY 7 Days #5 11/21/20 ml ibuprofen 600 mg tablet 600 mg PO TID PRN #14 tab 12/14/20 amoxicillin 875 mg-potassium 1 tab PO Q12H 10 Days #20 tab 12/17/20 clavulanate 125 mg tablet (Augmentin) ibuprofen 600 mg tablet 600 mg PO TID PRN #60 tab 12/17/20 amoxicillin 875 mg-potassium 1 tab PO Q12H 5 Days #10 tab 12/30/20 clavulanate 125 mg tablet (Augmentin) Allergies Allergy/AdvReac Type Severity Reaction Status Date / Time No Known Allergies Allergy Verified 12/30/20 02:23 [No Known Allergies*] [facility] Past Medical History Medical History No active medical problems Substance abuse Social History Social History Alcohol intake: never Patient Tobacco Use Status: Current someday Tobacco user Substance Use Type: Marijuana Advance Directives: No Physical Exam Vital Signs: Vital Signs: Last Vital Signs Temp 97.3 F 12/30/20 02:20 Pulse 74 12/30/20 02:20 Resp 16 12/30/20 02:20 BP 123/81 12/30/20 02:20 Pulse Ox 96 12/30/20 02:20 Body Mass Index 32.5 Course Course Course Narrative: Patient given initial antibiotics as well as combination analgesics here in the ER and then discharged home in stable condition. Discharge Plan Discharge Clinical Impression: Toothache Patient Disposition: Home, Self-Care Instructions: Toothache (ED) Additional Instructions: 1. Recommend using [id number] Tylenol/ibuprofen as needed for pain control. 2. Please follow up with the dentist at your earliest convenience for definitive treatment. Return to the ER for acute worsening of symptoms. Prescriptions: New amoxicillin-pot clavulanate [Augmentin] 875-125 mg tablet 1 tab PO Q12H 5 Days Qty: 10 RF: 0 No Action amoxicillin 500 mg tablet 500 mg PO BID 7 Days Qty: 14 RF: 0 ofloxacin 0.3 % drops 10 drp otic (ears) DAILY 7 Days Qty: 5 RF: 0 ibuprofen 600 mg tablet 600 mg PO TID PRN (Reason: pain) Qty: 14 RF: 0 amoxicillin-pot clavulanate [Augmentin] 875-125 mg tablet 1 tab PO Q12H 10 Days Qty: 20 RF: 0 ibuprofen 600 mg tablet 600 mg PO TID PRN (Reason: pain) Qty: 60 RF: 0 Referrals: [facility] [Primary Care Provider] - 2 days
[2020-12-30] MEDS: Acetaminophen 325 MG TABLET 975 MG PO (03:21)
[2020-12-30] MEDS: Ibuprofen 400 MG TABLET PO (03:22)
[2020-12-30] MEDS: Amoxicillin/Potassium Clav 875 MG TABLET PO (03:22)
[2020-12-30 03:26] VITALS: BP 132/70; PULSE 70; RESP 16; O2SAT 97
== END 2020-12-30 03:33 | disposition home or self-care (01) ==
PROVIDERS: Emergency Provider Student in an Organized Health Care Education/Training Program
DX: K08.89 Other specified disorders of teeth and supporting structures (principal); F17.210 Nicotine dependence, cigarettes, uncomplicated; F12.90 Cannabis use, unspecified, uncomplicated
CPT/HCPCS: 99283; 99284

== ENCOUNTER 2021-02-09 08:38 | Emergency (ER) | payer OTHER, SELFPAY ==
--- NOTE | 2021-02-09 08:48 | ED.GENADULT ---
HPI - General Adult General Chief complaint: ETOH/Substance Use Stated complaint: substance abuse, drowsiness Time Seen by Provider: 02/09/21 08:47 Source: patient and EMS Mode of arrival: EMS Limitations: no limitations History of Present Illness HPI narrative: PD found him nodding off in car outside of a school - adamantly denies drug use today admits to using heroin last night MD complaint: sleepiness Onset (ago): hour(s) Severity: mild Relieving factors: none Exacerbating factors: none Associated symptoms: denies other symptoms Treatments prior to arrival: none Related Data Previous Rx's Medication Instructions Recorded amoxicillin 500 mg tablet 500 mg PO BID 7 Days #14 tab 11/21/20 ofloxacin 0.3 % ear drops 10 drp OTIC (EARS) DAILY 7 Days #5 11/21/20 ml ibuprofen 600 mg tablet 600 mg PO TID PRN #14 tab 12/14/20 amoxicillin 875 mg-potassium 1 tab PO Q12H 10 Days #20 tab 12/17/20 clavulanate 125 mg tablet (Augmentin) ibuprofen 600 mg tablet 600 mg PO TID PRN #60 tab 12/17/20 amoxicillin 875 mg-potassium 1 tab PO Q12H 5 Days #10 tab 12/30/20 clavulanate 125 mg tablet (Augmentin) Allergies Allergy/AdvReac Type Severity Reaction Status Date / Time No Known Allergies Allergy Verified 12/30/20 02:23 [No Known Allergies*] Review of Systems Review of Systems: Constitutional :No Fever, No Chills ENT/Mouth : No sore throat, No Rhinorrhea Eyes: No Eye Pain, No Swelling, No Redness Cardiovascular : No Chest Pain, No SOB Respiratory : No Cough, No Sputum, No Wheezing Gastrointestinal : No Nausea, No Vomiting, No Diarrhea Genitourinary : No Dysuria, No Urinary Frequency, No Hematuria, Musculoskeletal : No joint pain, No Myalgias, No Joint Swelling Skin : No Skin Lesions, No rash Neuro : No Weakness, No Numbness, No Dizziness, No Headache Psych : No Anxiety/Panic, No Depression PMFSH Past Medical History Attestation statement: The following information was validated with the patient. Medical History No active medical problems Substance abuse Social History Social History Alcohol intake: unknown Patient Tobacco Use Status: Current someday Tobacco user Substance Use Type: Marijuana Advance Directives: No Advance Directives Information Provided: No Physical Exam Vital Signs: Vital Signs: Last Vital Signs Temp 98.4 F 02/09/21 09:10 Pulse 86 02/09/21 09:10 Resp 18 02/09/21 09:10 BP 95/52 L 02/09/21 09:10 Pulse Ox 98 02/09/21 09:10 Body Mass Index 36.0 Appearance: Drowsy but awakes to voice. Oriented X3. No acute distress. Eyes: pinpoint pupils ENT: Pharynx normal. Neck: Normal inspection. Neck supple. CVS: Normal heart rate and rhythm. Pulses normal. Respiratory: No respiratory distress. Breath sounds normal. Abdomen: Soft and nontender. Skin: Skin warm and dry. Normal skin color. Normal skin turgor. Extremities: No lower extremity edema. No calf ttp Neuro: Oriented X 3. No motor deficit. No sensory deficit. Psych: no SI/HI Course Course Course Narrative: no narcan given in over 1.5 hours can be DC Medical Decision Making [facility] Narrative Medical decision making narrative: 25 yo male with substance abuse issues found sleeping outside a school in his car - PD called he states he used last night but not today. No narcan given easily woken to verbal stimuli. No SI. Does not want rehab or detox. Will observe and DC once more awake. Discharge Plan Discharge Clinical Impression: Active substance abuse Patient Disposition: Home, Self-Care Instructions: Polysubstance Abuse (ED) Additional Instructions: return to ED for any worsening symptoms or concerns Prescriptions: No Action amoxicillin 500 mg tablet 500 mg PO BID 7 Days Qty: 14 RF: 0 ofloxacin 0.3 % drops 10 drp otic (ears) DAILY 7 Days Qty: 5 RF: 0 amoxicillin-pot clavulanate [Augmentin] 875-125 mg tablet 1 tab PO Q12H 5 Days Qty: 10 RF: 0 ibuprofen 600 mg tablet 600 mg PO TID PRN (Reason: pain) Qty: 14 RF: 0 amoxicillin-pot clavulanate [Augmentin] 875-125 mg tablet 1 tab PO Q12H 10 Days Qty: 20 RF: 0 ibuprofen 600 mg tablet 600 mg PO TID PRN (Reason: pain) Qty: 60 RF: 0
[2021-02-09 09:10] VITALS: BP 95/52; PULSE 86; RESP 18; TEMP 36.9; O2SAT 98; BMI 36.0
== END 2021-02-09 10:46 | disposition home or self-care (01) ==
PROVIDERS: Emergency Provider Emergency Medicine
DX: F19.10 Other psychoactive substance abuse, uncomplicated (principal); R40.0 Somnolence; F17.210 Nicotine dependence, cigarettes, uncomplicated; F12.90 Cannabis use, unspecified, uncomplicated
CPT/HCPCS: 99283